=== PATIENT | female | born 1985 | race Caucasian/White ===

== ENCOUNTER → 2016-10-14 | Outpatient (REF) | payer BC ==
[2016-10-14 16:52] LABS: PERCENT SATURATION 8.6 % (13.2-37.4)
== END ==
LOC: M LAB REF 16:06
PROVIDERS: ATTEND Internal Medicine
DX: D50.9 Iron deficiency anemia, unspecified (principal)

== ENCOUNTER → 2017-06-14 | Outpatient (REF) | payer BC ==
[2017-06-14 14:23] LABS: PERCENT SATURATION 8.3 % (13.2-45.0)
== END ==
LOC: M LAB REF 13:25
PROVIDERS: ATTEND Internal Medicine
DX: D50.9 Iron deficiency anemia, unspecified (principal); D51.9 Vitamin B12 deficiency anemia, unspecified

== ENCOUNTER → 2018-05-18 | Outpatient (REF) | payer BC ==
[2018-05-18 17:39] LABS: FERRITIN 44 NG/ML (8-252); IRON (FE) 94 UG/DL (50-170); PERCENT SATURATION 19.8 % (13.2-45.0); TOTAL IRON BINDING CAPACITY 475 UG/DL (250-450)
== END ==
LOC: M LAB REF 16:29
DX: D50.9 Iron deficiency anemia, unspecified (principal); D51.9 Vitamin B12 deficiency anemia, unspecified

== ENCOUNTER → 2019-02-08 | Outpatient (REF) | payer BC ==
[2019-02-08 16:48] LABS: PERCENT SATURATION 24.8 % (13.2-45.0)
== END ==
LOC: M LAB REF 16:10
PROVIDERS: ATTEND Internal Medicine
DX: D50.9 Iron deficiency anemia, unspecified (principal)

== ENCOUNTER → 2019-09-10 | Outpatient (REF) | payer BC ==
[2019-09-10 12:58] LABS: FERRITIN 71 NG/ML (8-252); IRON (FE) 107 UG/DL (50-170); PERCENT SATURATION 21.5 % (13.2-45.0); TOTAL IRON BINDING CAPACITY 498 UG/DL (250-450)
[2019-09-10 13:10] LABS: H PYLORI QUALITATIVE IgG NEGATIVE (NEGATIVE)
== END ==
LOC: M LAB REF 12:13
PROVIDERS: ATTEND Internal Medicine
DX: D50.9 Iron deficiency anemia, unspecified (principal); K58.2 Mixed irritable bowel syndrome

== ENCOUNTER → 2020-03-13 | Outpatient (REF) | payer BC ==
[2020-03-13 19:30] LABS: PERCENT SATURATION 23.9 % (13.2-45.0)
== END ==
LOC: M LAB REF 17:07
PROVIDERS: ATTEND Internal Medicine
DX: D51.9 Vitamin B12 deficiency anemia, unspecified (principal); D50.9 Iron deficiency anemia, unspecified

== ENCOUNTER → 2020-09-07 | Outpatient (REF) | payer BC ==
[2020-09-07 16:52] LABS: PERCENT SATURATION 6.7 % (13.2-45.0)
== END ==
LOC: M LAB REF 15:57
PROVIDERS: ATTEND Internal Medicine
DX: D50.9 Iron deficiency anemia, unspecified (principal)

== ENCOUNTER → 2021-02-12 | Outpatient (REF) | payer BC ==
[2021-02-12 17:43] LABS: PERCENT SATURATION 22.1 % (13.2-45.0)
== END ==
LOC: M LAB REF 16:17
PROVIDERS: ATTEND Internal Medicine
DX: D50.9 Iron deficiency anemia, unspecified (principal); D51.9 Vitamin B12 deficiency anemia, unspecified

== ENCOUNTER → 2021-03-01 | Outpatient (CLI) | payer BC | LOC: M RAD 11:42 | PROVIDERS: ATTEND Internal Medicine | DX: R10.2 Pelvic and perineal pain (principal); R22.41 Localized swelling, mass and lump, right lower limb ==

== ENCOUNTER → 2021-03-17 | Outpatient (CLI) | payer BC | LOC: M PLAIMG 13:01 | PROVIDERS: ATTEND Internal Medicine | DX: D21.21 Benign neoplasm of connective and other soft tissue of right lower limb, including hip (principal); Z53.8 Procedure and treatment not carried out for other reasons ==

== ENCOUNTER → 2021-06-03 | Outpatient (CLI) | payer BC ==
[~2021-06-03] MED LIST: PROHANCE 279.3MG/ML 15ML VIAL As Ordered ONE
--- NOTE | 2021-06-03 12:33 | REP ---
INDICATION: MASS RT MEDIAL CALF. COMPARISON: None. TECHNIQUE: Pre and post contrast 3T MRI of the right lower extremity was performed utilizing various sequences. Gadolinium utilized: 11 cc ProHance FINDINGS: Skin markers have been placed identifying the clinical region of interest. Seen between the skin markers placed by the technologist there is an area of slightly increased adipose tissue in the proximal anteromedial lower leg. I do not have the contralateral side for comparison. This is non encapsulated and suppresses normally with fat suppression sequences. There is no abnormal enhancement. The tibial and fibular cortical and marrow signal is within normal limits throughout. There is no abnormal periosteal thickening, signal, or enhancement. There is no evidence of a knee joint or ankle joint effusion. Seen in the distal aspect of the medial head of the gastrocnemius muscle there is mild T2 hyper signal. There is no abnormal enhancement. There are no abnormal intracompartmental or extra compartmental fluid collections. All imaged flexor and extensor tendons are intact and of normal appearing low signal throughout. IMPRESSION: 1. There is a collection of normal appearing adipose tissue in the anteromedial lower leg as described above. This could represent a non encapsulated lipoma. 2. There is evidence of mild muscular strain of the medial head of the gastrocnemius muscle as described above. 3. Other findings as described above. <Electronically signed by Lucho Richmond > 06/03/21 2219
== END ==
LOC: M RAD 10:25
PROVIDERS: ATTEND Internal Medicine
DX: D21.21 Benign neoplasm of connective and other soft tissue of right lower limb, including hip (principal)
CPT/HCPCS: 73720; A9576

== ENCOUNTER 2022-04-28 06:12 | Day surgery (SDC) | payer BC ==
[~2022-04-28] VITALS: Ht 152.4 cm; Wt 61.9 kg
[~2022-04-28 06:12] MED LIST changes: +B-12100010 PO; +IRON27TA2 PO; +MAGN250T7 PO; -PROHANCE 279.3MG/ML 15ML VIAL As Ordered ONE; +ceFAZolin SOD 2 GM in IV 1 EA IV ONE
[2022-04-28] MEDS ORDERED: EPINEPHrine INJ 1 MG/ML 1ML AMP As Ordered ONE (06:58)
[2022-04-28] MEDS ORDERED: LIDOCAINE 1% MDV 20ML VIAL As Ordered ONE (06:58)
[2022-04-28] MEDS ORDERED: ONDANSETRON 4MG 2ML VIAL As Ordered ONE (07:26)
[2022-04-28] MEDS ORDERED: LIDOCAINE 2% 100MG/5ML SDV (FOR ANES.) As Ordered ONE (07:26)
[2022-04-28] MEDS ORDERED: propofoL 200 MG/20 ML VIAL As Ordered ONE (07:26)
[2022-04-28] MEDS ORDERED: fentaNYL 100 MCG/2 ML INJECTION As Ordered ONE (07:26)
[2022-04-28] MEDS ORDERED: MIDAZOLAM INJ 2MG/2ML VIAL (J2250 PER 1MG) As Ordered ONE (07:27)
[2022-04-28] MEDS ORDERED: dexameTHASONE 4 MG/ML 1ML VIAL (J1100 PER 1MG) As Ordered ONE (07:36)
[2022-04-28] MEDS ORDERED: GENTAMICIN SULF 80MG/2ML VIAL As Ordered ONE (07:38)
[2022-04-28] MEDS ORDERED: SCOPOLAMINE 1MG TRANSDERMAL PATCH TOP ONE (08:00)
[2022-04-28] MEDS ORDERED: SEVOFLURANE INHAL SOLN 250 ML BTL As Ordered ONE (08:00)
[2022-04-28] MEDS ORDERED: ACETAMINOPHEN 1000MG 100ML IV BTL (OFIRMEV) (J0131 PER 10MG) As Ordered ONE (08:13)
[2022-04-28] MEDS ORDERED: fentaNYL 100 MCG/2 ML INJECTION IV PRN (08:35)
[2022-04-28] MEDS ORDERED: oxyCODONE 5MG TAB PO PRN (08:35)
[2022-04-28] MEDS ORDERED: ONDANSETRON 4MG 2ML VIAL IV PRN (08:35)
[2022-04-28] MEDS ORDERED: LR 1,000 ML IV SCH (08:35)
[2022-04-28] MEDS ORDERED: MORPHINE 2 MG/ML 1ML VIAL IV PRN (08:35)
[2022-04-28] MEDS ORDERED: TRAM50TA2 PO (08:55)
[2022-04-28 10:50] VITALS: BP 120/72
== END 2022-04-28 11:00 | disposition home or self-care (01) ==
LOC: M SDC 06:12
PROVIDERS: ATTEND Plastic Surgery Surgery of the Hand
DX: D17.23 Benign lipomatous neoplasm of skin and subcutaneous tissue of right leg (principal); K21.9 Gastro-esophageal reflux disease without esophagitis; Z79.899 Other long term (current) drug therapy; Z88.1 Allergy status to other antibiotic agents
CPT/HCPCS: 15879; 81025; 88300; 88305; J0131; J0171; J0690; J1100; J1580; J2250; J2405; J3010